=== PATIENT | male | born 1960 | race Caucasian/White ===

== ENCOUNTER 2022-10-29 07:25 | Day surgery (SDC) | payer OTHER, SELFPAY ==
--- NOTE | 2022-10-26 12:21 | HO.ANESPROP2 ---
Documented by User: Moni Amado NP 10/26/22 12:23 HPI - Anesthesia Eval Consult details Narrative: 61yo M for Colonoscopy [facility] Past Medical History Medical History (Updated 10/26/22 @ 10:48 by Dorina Brown RN) Asthma HTN (hypertension) Thalassemia Social History Social History Patient Tobacco Use Status: Never used Tobacco Use of substances other than those prescribed or required for medical reasons: No Are you DNR?: No Advance Directives: No Advance Directives Information Provided: Yes Meds Allergies Allergy/AdvReac Type Severity Reaction Status Date / Time No Known Allergies Allergy Verified 10/26/22 10:47 Home Medications Medication Instructions Recorded Confirmed Last Taken Type Fish Oil 1 tab PO DAILY 10/26/22 10/29/22 10/22/22 History Vitamin B-12 10/26/22 Unknown History Vitamin C 10/26/22 Unknown History allopurinol 100 mg tablet 2 tab PO DAILY 10/26/22 10/26/22 Unknown History fluticasone 250 mcg-salmeterol 50 inhalation DAILY 10/26/22 10/29/22 History mcg/dose blistr powdr for inhalation (Advair Diskus) losartan 100 1 tab PO DAILY 10/26/22 10/26/22 Unknown History mg-hydrochlorothiazide 12.5 mg tablet rosuvastatin 5 mg tablet 1 tab PO DAILY 10/26/22 10/26/22 Unknown History Exam Exam Date and Time: October 26, 2022 122 Assessment and Plan Assessment Anesthesia Assessment: Chart Reviewed Documented by User: Maninder Foster MD 10/29/22 08:45 [facility] Past Medical History Medical History (Updated 10/26/22 @ 10:48 by Dorina Brown RN) Asthma HTN (hypertension) Thalassemia Family History Family history of problems with anesthesia: No Surgical History History of Problems with Anesthesia: No Social History Social History Patient Tobacco Use Status: Never used Tobacco Use of substances other than those prescribed or required for medical reasons: No Are you DNR?: No Advance Directives: No Advance Directives Information Provided: Yes Meds Allergies Allergy/AdvReac Type Severity Reaction Status Date / Time No Known Allergies Allergy Verified 10/26/22 10:47 Home Medications Medication Instructions Recorded Confirmed Last Taken Type Fish Oil 1 tab PO DAILY 10/26/22 10/29/22 10/22/22 History Vitamin B-12 10/26/22 Unknown History Vitamin C 10/26/22 Unknown History allopurinol 100 mg tablet 2 tab PO DAILY 10/26/22 10/26/22 Unknown History fluticasone 250 mcg-salmeterol 50 inhalation DAILY 10/26/22 10/29/22 History mcg/dose blistr powdr for inhalation (Advair Diskus) losartan 100 1 tab PO DAILY 10/26/22 10/26/22 Unknown History mg-hydrochlorothiazide 12.5 mg tablet rosuvastatin 5 mg tablet 1 tab PO DAILY 10/26/22 10/26/22 Unknown History Exam Airway Mallampati Class: II TM Dist: >3cm Neck ROM: Full Heart: rrr Lungs: clear Assessment and Plan Final Anesthetic Review Family History of Problems with Anesthesia: No History of Problems with Anesthesia: No NPO: Yes ASA Class: II Final Preanesthetic Review: No Changes in Pt Med Stat, Meds/Allgs Chart Reviewed, Consent Obtained/Reviewed and Anes Risks/Benef Reviewed Patient Risk: Intermediate Procedure Risk: Low Anesthetic Plan Anesthetic Plan: MAC: Disposition: Standard PACU
[2022-10-29 07:41] VITALS: BP 154/103; PULSE 102; RESP 18; TEMP 36.1; O2SAT 96; BMI 33.9
[2022-10-29 08:05] VITALS: BP 154/103; PULSE 102; RESP 18; TEMP 36.1; O2SAT 95
[2022-10-29] MEDS: Lactated Ringers 1,000 ML 100 ML IVCONT (08:07)
--- NOTE | 2022-10-29 09:39 | P.BOP_ITS ---
Brief Operative Note Date of Service: 10/29/22 Pre-op diagnosis: Screening Post-op diagnosis: other (Diverticulosis) Procedure: Colonoscopy to cecum Surgeon: Nathan Hernandez Anesthesia: MAC Was an Hotel [employer] used for this Procedure?: No Estimated blood loss (mL): 0 Pathology: none sent Condition: stable Disposition: PACU
[2022-10-29 09:40] VITALS: BP 82/47; PULSE 86; RESP 18; TEMP 37.1; O2SAT 93
[2022-10-29 09:45] VITALS: BP 96/42; PULSE 79; RESP 16; O2SAT 96
[2022-10-29 09:55] VITALS: BP 106/64; PULSE 72; RESP 18; TEMP 36.1; O2SAT 96
--- NOTE | 2022-10-29 10:45 | OP_ITS ---
SURGEON: Nathan Hernandez MD INDICATIONS: The patient presents for evaluation of colorectal cancer screening. Full consent has been obtained from him for this, including risks of bleeding and perforation. PREOPERATIVE DIAGNOSIS: Colorectal cancer screening. POSTOPERATIVE DIAGNOSIS: PROCEDURE PERFORMED: Colonoscopy to the cecum. ESTIMATED BLOOD LOSS: COMPLICATIONS: ANESTHESIA: Monitored anesthesia care. ASSISTANTS: SPECIMENS: POSTOPERATIVE DIAGNOSES: Colorectal cancer screening, diverticulosis, and internal hemorrhoids. DESCRIPTION OF PROCEDURE: The patient was placed in the left lateral decubitus position. The digital rectal exam revealed no abnormalities the Olympus video pediatric colonoscope was entered into the rectum and advanced to the cecum with the assistance of abdominal wall pressure. Once in the cecum I did identify normal-appearing cecal pouch with appendiceal orifice and a normal-appearing ileocecal valve. The entire cecum was well visualized and appeared normal. There was transillumination of light deep in the right lower quadrant. The scope was slowly withdrawn assessing all mucosal surfaces carefully. Preparation was excellent. I did not visualize any sign of polyps, colitis, nor angiodysplasia. There was a mild amount of sigmoid diverticulosis. In the rectum, scope was retroflexed visualizing internal hemorrhoids, but no other pathology. The rectal mucosa appeared normal. The scope was straightened and withdrawn from the patient. He tolerated the procedure well and was returned to the recovery area in stable condition. IMPRESSION: 1. Diverticulosis. 2. Internal hemorrhoids. PLAN: Given today's negative exam and negative family history, I would recommend a followup colonoscopy in 10 years for further screening. He will otherwise see me on a p.r.n. basis. MD ROHIT Ling/MODL / [id number]
== END 2022-10-29 10:17 | disposition home or self-care (01) ==
PROVIDERS: Visit Provider Internal Medicine
PROC: 0DJD8ZZ Inspection of Lower Intestinal Tract, Via Natural or Artificial Opening Endoscopic (ICD-10-PCS; CPT 45378; principal; 2022-10-29 08:30)
DX: Z12.11 Encounter for screening for malignant neoplasm of colon (principal); K57.30 Diverticulosis of large intestine without perforation or abscess without bleeding; K64.8 Other hemorrhoids; I10 Essential (primary) hypertension; J45.909 Unspecified asthma, uncomplicated; Z79.899 Other long term (current) drug therapy
CPT/HCPCS: 45378